=== PATIENT | female | born 1980 | race Caucasian/White ===

== ENCOUNTER 2019-01-09 14:18 | Emergency (ER) | payer OTHER ==
--- OUTSIDE RECORDS SUMMARY | 2019-01-09 14:31 | XMS REPORT | Continuity of Care Document ---
:1980 External Reference #:[id number] Author Name Darnell Hurst MD Address [address] [address] Care Team Providers Name Role Phone Darnell Hurst MD Care Team Information Breakfast Server Unavailable Payers Date Identification Numbers Payment Provider Subscriber Effective: 2016 Policy Number: [id number] [facility] Sukhjinder Vaughn Expires: 2017 Group Name: [employer] [address] [address] PayID: [id number] [place] [id number] Expires: 2017 PayID: [id number] [facility] Medicaid Sukhjinder Vaughn [address] [place] [address] Effective: 2017 Policy Number: [id number] Medicaid/[employer] Sukhjinder Vaughn Expires: 2018 Group Name: 1 1 [address] PayID: [id number] [place] [address] Effective: 2018 Policy Number: [id number] [facility] Sukhjinder Vaughn Medicaid PayID: [id number] [address] [place] [id number] Advance Directives Description No Information Available Problems Description No Information Family History Date Family Member(s) Observation Comments Father VT @ 40. Still Living Mother Depression First Sister Depression Paternal Grandfather due to Unknown Causes () - Heart? Paternal Grandmother due to Unknown Causes () - Heart? Maternal Grandfather due to Unknown Causes () Maternal Grandmother due to Cancer, Lung () Maternal Grandmother Stroke Social History Type Date Description Comments Sex Unknown Tobacco Use Start: Unknown End: Former Cigarette Smoker Unknown Smoking Status Reviewed: 02/06/18 Former Cigarette Smoker ETOH Use Rarely consumes alcohol Recreational Drug Use Denies Drug Use Tobacco Use Start: Unknown End: Patient is a former "Seasonal smoker" Unknown smoker for the last 3 to 4 yrs. Never a pack a day Allergies, Adverse Reactions, Alerts Date Description Reaction Status Severity Comments 10/03/2017 Morphine Active 10/03/2017 Acetaminophen / Codeine Active 10/03/2017 NKDA Inactive Medications Medication Date Status Form Strength Qnty SIG Indications Ordering Provider Hydroxyzine Hx Tablets 10mg 30tabs Take 1 to F41.9 Kasey HCL 017 - 2 tablets Shortle, CLINICAL ACCOUNT EXECUTIVE by mouth 018 every 6 hours as needed for anxiety Lexapro Hx Tablets 10mg 30tabs Take One F41.9 Kasey 017 - Tablet By Shortle, CLINICAL ACCOUNT EXECUTIVE Mouth 018 Every Day Immunizations CPT Code Status Date Vaccine Lot # [id number] Refused 08/18/2018 Influenza Virus Vaccine, Quadrivalent, 3 Yr > Quad , Preserv Free [id number] Refused 10/31/2017 Influenza Virus Vaccine, Quadrivalent, 3 Yr > Quad , Preserv Free Vital Signs Date Vital Result Comment 01/07/2019 3:46pm Weight 157.00 lb Weight 71.215 kg BP Systolic 110 mmHg BP Diastolic 70 mmHg Heart Rate 70 /min Body Temperature 99.3 F Respiratory Rate 16 /min O2 % BldC Oximetry 98 % 08/18/2018 9:52am Weight 160.00 lb Weight 72.576 kg BP Systolic 106 mmHg BP Diastolic 70 mmHg Heart Rate 70 /min Body Temperature 97.9 F Respiratory Rate 16 /min O2 % BldC Oximetry 98 % 02/06/2018 8:53am Weight 158.00 lb Weight 71.669 kg BP Systolic 102 mmHg BP Diastolic 74 mmHg Heart Rate 68 /min Body Temperature 98.4 F Respiratory Rate 16 /min Height 65.5 inches 5'5.50" BMI (Body Mass Index) 25.9 kg/m2 10/31/2017 9:07am Weight 148.00 lb Weight 67.133 kg BP Systolic 100 mmHg BP Diastolic 60 mmHg Heart Rate 78 /min Body Temperature 98.3 F Respiratory Rate 14 /min 10/17/2017 10:20am Weight 144.00 lb Weight 65.318 kg BP Systolic 120 mmHg BP Diastolic 72 mmHg Heart Rate 98 /min Body Temperature 98.7 F 10/03/2017 9:20am Weight 147.00 lb Weight 66.679 kg BP Systolic 118 mmHg BP Diastolic 70 mmHg Heart Rate 72 /min Body Temperature 98.6 F Respiratory Rate 16 /min Height 65 inches 5'5" BMI (Body Mass Index) 24.5 kg/m2 Results Test Date Facility Test Result H/L Range Note Laboratory test 01/07/2019 [facility] HCG 25.00 mIU/mL 1 finding [phone] Laboratory test 01/07/2019 In House Lab HCG DIP Test NEG Neg finding (176)- - Comp Metabolic 02/21/2018 [facility] Sodium 137 mmol/ L N 133-145 Panel [phone] Potassium 3.9 mmol/L N 3.5-5.0 Chloride 103 mmol/L N 101-111 Co2 Carbon Dioxide 28 mmol/L N 22-32 Anion Gap 6 mmol/L N 2-11 Glucose 84 mg/dL N 70-100 Blood Urea Nitrogen 18 mg/dL N 6-24 Creatinine 0.75 mg/dL N 0.51-0.95 BUN/Creatinine Ratio 24.0 High 8-20 Calcium 9.5 mg/dL N 8.6-10.3 Total Protein 7.0 g/dL N 6.4-8.9 Albumin 4.3 g/dL N 3.2-5.2 Globulin 2.7 g/dL N 2-4 Albumin/Globulin Ratio 1.6 N 1-3 Total Bilirubin 0.70 mg/dL N 0.2-1.0 Alkaline Phosphatase 70 U/L N 34-104 Alt 15 U/L N 7-52 Ast 16 U/L N 13-39 Egfr Non- 87.4 >60 Egfr 112.4 >60 2 CBC Auto Diff 02/21/2018 [facility] White Blood 5.7 10^3/uL N 3.5-10.8 [phone] Count Red Blood Count 5.01 10^6/uL N 4.0-5.4 Hemoglobin 15.1 g/dL N 12.0-16.0 Hematocrit 44 % N 35-47 Mean Corpuscular Volume 88 fL N 80-97 Mean Corpuscular Hemoglobin 30 pg N 27-31 Mean Corpuscular HGB Conc 34 g/dL N 31-36 Red Cell Distribution Width 13 % N 10.5-15 Platelet Count 200 10^3/uL N 150-450 Mean Platelet Volume 8.7 um3 N 7.4-10.4 Abs Neutrophils 3.3 10^3/uL N 1.5-7.7 Abs Lymphocytes 1.7 10^3/uL N 1.0-4.8 Abs Monocytes 0.4 10^3/uL N 0-0.8 Abs Eosinophils 0.2 10^3/uL N 0-0.6 Abs Basophils 0 10^3/uL N 0-0.2 Abs Nucleated RBC 0 10^3/uL Granulocyte % 58.6 % N 38-83 Lymphocyte % 30.4 % N 25-47 Monocyte % 7.6 % High 0-7 Eosinophil % 3.0 % N 0-6 Basophil % 0.4 % N 0-2 Nucleated Red Blood Cells % 0 Lipid Profile 02/21/2018 [facility] Triglycerides 112 mg/dL 3 (Trig/Chol/HDL) [phone] Cholesterol 169 mg/dL 4 HDL Cholesterol 62.7 mg/dL 5 LDL Cholesterol 84 mg/dL 6 Laboratory test 02/06/2018 [facility] Cytology SEE RESULT 7 finding [phone] BELOW Laboratory test 10/03/2017 In House Lab HCG DIP Test neg Neg finding (607)- - Urine DIP 10/03/2017 In House Lab Leukocytes neg Neg (607)- - Urine Nitrites neg Neg Urobilinogen norm Norm Total Protein, Urine neg Neg Urine pH 5.0 5-6 Urine Blood trace Neg Specific [place] 1.010 1.01-1.02 Urine Ketones neg Neg Urine Bilirubin neg Neg Urine Glucose norm Norm Laboratory test 10/03/2017 [facility] TSH (Thyroid 1.88 mcIU/mL N 0.34-5.60 8 finding [phone] Stim Horm) Vitamin B12 545 pg/mL N 180-914 9 Vitamin D Total 25(Oh) 48.9 ng/mL N 20-50 10 1 <5.0 Negative 5.0 - 25.0 Indeterminate (Repeat testing recommended after 72 hours) >25.0 Positive Perimenopausal women can display HCG levels of up to 20 mIU/mL 2 Because ethnic data is not always readily available, this report includes an eGFR for both -Americans and non- Americans. The National Kidney Disease Education Program (NKDEP) does not endorse the use of the MDRD equation for patients that are not between the ages of 18 and 70, are , have extremes of body size, muscle mass, or nutritional status, or are non- or non-. According to the National Kidney Foundation, irrespective of diagnosis, the stage of the disease is based on the level of kidney function: Stage Description GFR(mL/min/1.73 m(2)) 1 Kidney damage with normal or decreased GFR 90 2 Kidney damage with mild decrease in GFR 60-89 3 Moderate decrease in GFR 30-59 4 Severe decrease in GFR 15-29 5 Kidney failure <15 (or dialysis) 3 Desirable: <150 Borderline High: 150-199 High: 200-499 Very High: >500 4 Desirable: <200 Borderline High: 200-239 High: >239 5 Low: <40 Desirable: 40-60 High: >60 6 Desirable: <100 Near Optimal: 100-129 Borderline High: 130-159 High: 160-189 Very High: >189 7 SEE RESULT BELOW Name: SUKHJINDER VAUGHN : [address]: Kasey Mcadams NP Acct: [id number] Unit: [id number] AGE: 38 Location: [facility] Re02/06/18 SEX: F Status: REG REF SPEC: [id number] SUSAN: 02/06/18-[address]: Kasey Mcadams CLINICAL ACCOUNT EXECUTIVE REQ: [id number] RECD: 02/06/18-1243 STATUS: SOUT _ ORDERED: TP IMAGE ANAL, HPV/Thin Prep, HPV 16/18 GENE COMMENTS: [id number] Negative for Intraepithelial lesion or Malignancy A. Ectocervical/Endocervical Specimen Adequacy: Satisfactory of evaluation Transformation zone component identified Patient Information: HPV: High risk HPV RNA testing regardless of pap results. HPV 16/18 Genotype Reflex Actual Specimen Date: 02/06/18 Spec Date if unknown: unknown Date Time Test Result Flag (u) Normal Range 02/06/18 1102 @ HPV RNA RFLX GE Negative Negative @ @ The high-risk HPV types detected by the assay include: 16, @ 18, 31, 33, 35, 39, 45, 51, 52, 56, 58, 59, 66, and 68. Signed (signature on file) BHAVYA Lowe(ASCP) 02/10 1016 This Pap test was evaluated with the assistance of the RF Surgical SystemsPrep Test Imaging System. Due to cytologic findings at the pole setter microscope, comprehensive manual rescreening by a Medicine Man may be required. The Pap Smear is a screening test designed to aid in the detection of premalignant and malignant conditions of the uterine cervix. It is not a diagnostic procedure and should not be used as the sole means of detecting cervical cancer. Both false- positive and false- negative reports do occur. Depending on your risk status, a Pap smear should be obtained and evaluated every 1-3 years. END OF REPORT DEPARTMENT OF PATHOLOGY, [address] [place] [address] Alejandro Causey M.D. 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, lumbar region M41.9 Scoliosis, unspecified Office Visit 02/06/2018 9:00a Main Office Kasey Mcadams, Z00.00 Encntr for CLINICAL ACCOUNT EXECUTIVE general adult medical exam w/o abnormal findings N94.10 Unspecified dyspareunia Office Visit 10/31/2017 9:00a Main Office Kasey Mcadams F41.9 Anxiety disorder, CLINICAL ACCOUNT EXECUTIVE unspecified Office Visit 10/17/2017 10:00a Main Office Kasey Mcadams F41.9 Anxiety disorder, CLINICAL ACCOUNT EXECUTIVE unspecified Office Visit 10/03/2017 9:00a Main Office Jackie Gates1.9 Anxiety disorder, CLINICAL ACCOUNT EXECUTIVE unspecified Plan of Treatment Future Appointment(s):02/09/2019 1:00 pm - Darnell Hurst MD at Main [id number]/07/2019 - Darnell Hurst MDN91.1 Secondary amenorrheaComments:IN office urine testing was negative. I would probably explain this by saying her home tests were accurate, and in fact more accurate than her in office test because they were done with first thing in a.m. urine which is more concentrated.We will get a serum hCG level at her request, but I believe the home tests.We discussed cautious optimism given the likelihood of different outcomes in early like this. She has plenty of time to establish with OB.Recommendations: vitamins
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
[2019-01-09 15:22] LABS: ABS Basophils 0.1 10^3/ul (0-0.2); ABS Eosinophils 0.2 10^3/ul (0-0.6); ABS Lymphocytes 1.9 10^3/ul (1.0-4.8); ABS Monocytes 0.5 10^3/ul (0-0.8); ABS Neutrophils 5.5 10^3/ul (1.5-7.7); ABS Nucleated RBC 0 10^3/ul; Eosinophil % 2.1 %; Hematocrit 39 % (35-47); Hemoglobin 13.5 g/dl (12.0-16.0); Lymphocyte % 23.1 %; Mean Corpuscular HGB Conc 35 g/dl (31-36); Mean Corpuscular Hemoglobin 29 pg (27-31); Mean Corpuscular Volume 85 fL (80-97); Mean Platelet Volume 7.7 fL (7.4-10.4); Nucleated Red Blood Cells % 0; Platelet Count 288 10^3/ul (150-450); Red Cell Distribution Width 12 % (10.5-15); White Blood Count 8.2 10^3/ul (3.5-10.8)
[2019-01-09 16:16] LABS: Urine Appearance Cloudy; Urine Bacteria Absent (Absent); Urine Bilirubin Negative (Negative); Urine Blood 3+ (Negative); Urine Color Yellow; Urine Glucose Negative (Negative); Urine Ketones Negative (Negative); Urine Nitrite Negative (Negative); Urine Protein Negative (Negative); Urine Red Blood Cell 3+(>10/hpf) (Absent); Urine Specific Gravity 1.018 (1.010-1.030); Urine Squamous Epithelial Cell Present (Absent); Urine Urobilinogen Negative (Negative); Urine White Blood Cell Absent (Absent)
[2019-01-09 16:36] VITALS: BP 123/83
== END 2019-01-09 16:35 | disposition home or self-care (01) ==
LOC: ED 14:18
DX: O20.9 Hemorrhage in early pregnancy, unspecified (principal); N93.8 Other specified abnormal uterine and vaginal bleeding; Z3A.01 Less than 8 weeks gestation of pregnancy; Z88.6 Allergy status to analgesic agent; Z87.891 Personal history of nicotine dependence
CPT/HCPCS: 36415; 81003; 81015; 84702; 85025; 86900; 86901; 99282

== ENCOUNTER 2020-03-19 10:58 | Emergency (ER) | payer OTHER ==
[2020-03-19 11:10] VITALS: BP 111/79
--- NOTE | 2020-03-19 11:24 | ED ---
Lower Extremity - HPI Summary HPI Summary: The patient is a 40-year-old female presenting to [facility] Emergency Department with a chief complaint of left foot pain since last night. She reports that her accidentally stepped on her foot yesterday, and she has since been experiencing pain rated 10/10 in severity. She is able to walk but with pain. She has no other complaints at this time. She denies numbness in the foot. No recent travel or known sick contact. Past medical history includes scoliosis, anxiety/panic disorder. Former smoker. No alcohol or substance use. Medications reviewed. Allergies noted. - History of Current Complaint Chief Complaint: EDExtremityLower Stated Complaint: FOOT INJURY PER EMS Time Seen by Provider: 03/19/20 11:00 Hx Obtained From: Patient Hx Last Menstrual Period: today, before that: October 19 Mechanism Of Injury: Other - stepped on Onset of Pain: Immediate Onset/Duration: Still Present Severity Initially: Severe Severity Currently: Severe Pain Intensity: 10 Pain Scale Used: 0-10 Numeric Timing: Constant Location: Is Diffuse - in right foot Character Of Pain: Aching Associated Signs And Symptoms: Positive: Negative Aggravating Factor(s): Ambulation Alleviating Factor(s): Nothing Able to Bear Weight: Yes - but with pain - Allergies/Home Medications Allergies/Adverse Reactions: Allergies Allergy/AdvReac Type Severity Reaction Status Date / Time codeine Allergy GI Upset Verified 03/19/20 11:10 latex Allergy Itching Verified 03/19/20 11:10 morphine Allergy Itching Verified 03/19/20 11:10 Home Medications: Home Medications NK [No Home Medications Reported] 01/09/19 [History Confirmed 03/19/20] PMH/Surg Hx/FS Hx/Imm Hx Endocrine/Hematology History: Denies: Hx Diabetes Cardiovascular History: Denies: Hx Hypertension, Hx Pacemaker/ICD History: Denies: Hx Renal Disease Musculoskeletal History: Reports: Hx Scoliosis Sensory History: Denies: Hx Hearing Aid Psychiatric History: Reports: Hx Anxiety, Hx Panic Disorder - ANXIETY - Surgical History Surgical History: Yes Surgery Procedure, Year, and Place: 1996 MID/UPPER BACK WITH RODS-TOOK BONE MARROW FROM ANOTHER PART OF HER BODY Infectious Disease History: No Infectious Disease History: Denies: Traveled Outside the [place] in Last 30 Days - Family History Known Family History: Positive: Hypertension - Social History Alcohol Use: None Hx Substance Use: No Substance Use Type: Reports: None Hx Tobacco Use: No Smoking Status (MU): Former Smoker Have You Smoked in the Last Year: No Review of Systems Positive: Other - left foot pain Negative: Numbness All Other Systems Reviewed And Are Negative: Yes Physical Exam - Summary Physical Exam Summary: VITAL SIGNS: Reviewed. GENERAL: Patient is a well-developed and nourished female who is lying comfortable in the stretcher. Patient is not in any acute respiratory distress. HEAD AND FACE: No signs of trauma. No ecchymosis, hematomas or skull depressions. No sinus tenderness. EYES: PERRL, EOMI x 2, No injected conjunctiva, no nystagmus. EARS: Hearing grossly intact. Ear canals and tympanic membranes are within normal limits. MOUTH: Oropharynx within normal limits. NECK: Supple, trachea is midline, no adenopathy, no JVD, no carotid bruit, no c- spine tenderness, neck with full ROM. CHEST: Symmetric, no tenderness at palpation. LUNGS: Clear to auscultation bilaterally. No wheezing or crackles. CVS: Regular rate and rhythm, S1 and S2 present, no murmurs or gallops appreciated. ABDOMEN: Soft, non-tender. No signs of distention. No rebound, no guarding, and no masses palpated. Bowel sounds are normal. EXTREMITIES: Tenderness in the left ankle and dorsal aspect of the foot. No swelling, no deformity. Good pulses, good capillary refill. FROM in all major joints, no edema, no cyanosis or clubbing. NEURO: Alert and oriented x 3. No acute neurological deficits. Speech is normal and follows commands. SKIN: Dry and warm. Triage Information Reviewed: Yes Vital Signs On Initial Exam: Initial Vitals Temp Pulse Resp BP Pulse Ox 98.1 F 91 18 111/79 96 03/19/20 11:03 03/19/20 11:03 03/19/20 11:03 03/19/20 11:03 03/19/20 11:03 Vital Signs Reviewed: Yes Procedures - Sedation Patient Received Moderate/Deep Sedation with Procedure: No Diagnostics - Vital Signs Vital Signs Temp Pulse Resp BP Pulse Ox 03/19/20 11:03 98.1 F 91 18 111/79 96 - Laboratory Lab Statement: Any lab studies that have been ordered have been reviewed, and results considered in the medical decision making process. - Radiology Ankle X-Ray Radiology Interpretation Completed By: Radiologist Summary of Radiographic Findings: Impression: 1. No ankle fracture. 2. Probable os peroneum along the lateral cortex of the cuboid. Correlate with point tenderness. If pain persists, repeat imaging in 7-[address] Zhao has reviewed this report. Foot X-Ray Radiology Interpretation Completed By: Radiologist Summary of Radiographic Findings: Impression: Probable os peroneum along the lateral cortex of the cuboid. Correlate with point tenderness. If pain persists , repeat imaging in 7-[address] Zhao has reviewed this report. Re-Evaluation - Re-Evaluation First Eval Re-Evaluation Time: 12:50 Comment: I discussed all results and plan for discharge. Patient in a boot and given crutches. Lower Extremity Course/Dx - Course Assessment/Plan: The patient is a 40-year-old female presenting to [facility] Emergency Department with a chief complaint of left foot pain since last night. She reports that her accidentally stepped on her foot yesterday, and she has since been experiencing pain rated 10/10 in severity. She is able to walk but with pain. She has no other complaints at this time. She denies numbness in the foot. No recent travel or known sick contact. Past medical history includes scoliosis, anxiety/panic disorder. Former smoker. No alcohol or substance use. Medications reviewed. Allergies noted. Foot and ankle x-ray impression: Probable os peroneum along the lateral cortex of the cuboid. Correlate with point tenderness. If pain persists, repeat imaging in 7-10 days. Patient was placed in a CAM boot and given crutches and will be discharged home with f/u of PCP. Patient is hemodynamically stable. - Diagnoses Provider Diagnoses: Ankle sprain - Critical Care Time Critical Care Statement: Critical care time is provided exclusive of any time spent performing procedures. Discharge ED - Sign-Out/Discharge Documenting (check all that apply): Patient Departure - Patient will be discharged home. - Discharge Plan Condition: Stable Disposition: HOME Patient Education Materials: Ankle Sprain (DC) Referrals: Darnell Hurst MD [Primary Care Provider] - 3 Days Additional Instructions: Follow up with your primary care provider in 2-3 days. Return to the emergency department for any new or worsening symptoms. - Billing Disposition and Condition Condition: STABLE Disposition: Home - Attestation Statements Document Initiated by Scribe: Yes Documenting Scribe: Lucy Hunter Provider For Whom Scribe is Documenting (Include Credential): Kamran Zhao MD Scribe Attestation: I, Lucy Hunter, scribed for Kamran Zhao MD on 03/20/20 at 1122. Scribe Documentation Reviewed: Yes Provider Attestation: The documentation as recorded by the Lucy shea accurately reflects the service I personally performed and the decisions made by me, Kamran Zhao MD Status of Scribe Document: Viewed
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
== END 2020-03-19 13:17 | disposition home or self-care (01) ==
LOC: ED 10:58
DX: S93.402A Sprain of unspecified ligament of left ankle, initial encounter (principal); M79.672 Pain in left foot; Z87.891 Personal history of nicotine dependence; F41.9 Anxiety disorder, unspecified; M41.9 Scoliosis, unspecified; Z88.6 Allergy status to analgesic agent; Z91.040 Latex allergy status; W50.0XXA Accidental hit or strike by another person, initial encounter; Y92.9 Unspecified place or not applicable
CPT/HCPCS: 99282